=== PATIENT | male | born 1960 | race Caucasian/White ===

== ENCOUNTER 2024-06-06 14:57 | Inpatient (IN) | payer OTHER ==
[~2024-06-06] VITALS: Ht 188 cm; Wt 96.6 kg
[2024-06-06 15:51] LABS: BASOPHILS % (AUTO) 0.1 % (0.0-2.0); EOSINOPHILS # (AUTO) 0.1 K/uL (0.0-0.7); EOSINOPHILS % (AUTO) 1.7 % (0.0-6.0); HEMATOCRIT 34 % (39-51); HEMOGLOBIN 12.3 g/dL (13.5-17.5); LYMPHOCYTES # (AUTO) 0.3 K/uL (0.8-4.8); MEAN CORPUSCULAR HEMOGLOBIN 33 PG (26.0-33.0); MEAN CORPUSCULAR HGB CONC 36 g/dl (31.0-36.0); MEAN CORPUSCULAR VOLUME 92 fL (80-96); MONOCYTES # (AUTO) 0.6 K/uL (0.1-1.30); MONOCYTES % (AUTO) 16.6 % (2.0-12.0); NEUTROPHILS # (AUTO) 2.7 K/uL (1.8-8.9); NEUTROPHILS % (AUTO) 73.6 % (43.0-81.0); PLATELET COUNT (AUTO) 87 K/uL (150-450); RED BLOOD CELL COUNT(AUTO) 3.73 MIL/uL (4.5-6.0); RED CELL DISTRIBUTION WIDTH 18.1 % (11.5-15.0); WHITE BLOOD COUNT (AUTO) 3.6 K/uL (4.3-11.0)
[2024-06-06 15:54] LABS: CALCIUM, SERUM 8.4 mg/dL (8.5-10.1); CARBON DIOXIDE 32 mmol/L (21-32); CHLORIDE 97 mmol/L (98-107); CREATININE 1.4 mg/dL (0.6-1.3); GLUCOSE 162 mg/dL (74-106); POTASSIUM 4.1 mmol/L (3.5-5.1); SODIUM SERUM 136 mmol/L (136-145); UREA NITROGEN, BLOOD 28 mg/dL (7-18)
[2024-06-06 16:04] LABS: INR 1.32 (0.91-1.10); PARTIAL THROMBOPLASTIN TIME 28.6 SEC (24.3-34.3); PROTHROMBIN TIME 13.7 SECS (9.2-11.1)
[2024-06-06 16:06] LABS: LACTIC ACID 2.1 mmol/L (0.4-2.0)
[2024-06-06 16:11] LABS: ALANINE AMINOTRANSFERASE 18 U/L (12-78); ALBUMIN 2.9 g/dL (3.4-5.0); ALKALINE PHOSPHATASE 129 U/L (46-116); ASPARTATE AMINOTRANSFERASE 38 U/L (15-37); BILIRUBIN,DIRECT 0.6 mg/dL (0.0-0.2); BILIRUBIN,TOTAL 2.3 mg/dL (0.2-1.0); TOTAL PROTEIN, SERUM 6.4 g/dL (6.4-8.2)
[2024-06-06] MEDS: IV NS 0.9% 1,000 ML BAG IV ONE (16:14)
[2024-06-06] MEDS: CEFEPIME 1 GM in IV D5W 50 ML IV ONE (16:14)
[2024-06-06] MEDS: VANCOMYCIN 1 GM in IV D5W 250 ML IV ONE (16:16)
[2024-06-06 18:31] LABS: APPEARANCE,URINE CLEAR (CLEAR); BILIRUBIN,URINE NEGATIVE (NEGATIVE); BLOOD, URINE NEGATIVE Ery/uL (NEGATIVE); COLOR,URINE YELLOW (YELLOW); KETONES,URINE NEGATIVE (NEGATIVE); LEUKOCYTE ESTERASE ,URINE NEGATIVE (NEGATIVE); NITRITE, URINE NEGATIVE (NEGATIVE); PROTEIN,URINE NEGATIVE (NEGATIVE); UGLUCOSE NEGATIVE (NEGATIVE); UROBILINOGEN,URINE 0.2 EU/dL (0.2)
[2024-06-06 18:40] LABS: EOSINOPHILS % (MANUAL) 2 % (0-4); LYMPHOCYTES % (MANUAL) 11 % (16-48); MONOCYTES % (MANUAL) 8 % (0-11.0); NEUTROPHILS % (MANUAL) 77 (42-76); PLATELET ESTIMATE DECREASED; REACTIVE LYMPHOCYTES 2 % (0-0)
[2024-06-06 18:42] LABS: ANISOCYTOSIS 1+
[2024-06-06] MEDS ORDERED: ACETAMINOPHEN 325 MG TABLET PO PRN (19:30)
[2024-06-06] MEDS ORDERED: Z GUARD REMEDY 4 OZ OINT TP PRN (19:30)
[2024-06-06] MEDS ORDERED: ONDANSETRON HCL/PF 4 MG/2 ML VIAL IVP PRN (19:30)
[2024-06-06] MEDS ORDERED: MAGNESIUM HYDROXIDE 30 ML UDC PO PRN (19:30)
[2024-06-06] MEDS ORDERED: MAG HYDROX/AL HYDROX/SIMETH 30 ML UDC PO PRN (19:30)
[2024-06-06] MEDS ORDERED: ZINC50TA65 PO (19:39)
[2024-06-06] MEDS ORDERED: FAMO20TA8 PO (19:39)
[2024-06-06] MEDS ORDERED: HYDR-3980 PO (19:39)
[2024-06-06] MEDS ORDERED: LINA5TAB PO (19:39)
[2024-06-06] MEDS ORDERED: ACET325T53 PO (19:39)
[2024-06-06] MEDS ORDERED: SENN-261 PO (19:39)
[2024-06-06] MEDS ORDERED: ATOR40TA PO (19:39)
[2024-06-06] MEDS ORDERED: MIRT-90 PO (19:39)
[2024-06-06] MEDS ORDERED: METO25TA4 PO (19:39)
[2024-06-06] MEDS ORDERED: MEGE40TA7 PO (19:39)
[2024-06-06] MEDS ORDERED: ACET-637 PO (19:39)
[2024-06-06] MEDS ORDERED: INSU100I34 SQ (19:39)
[2024-06-06] MEDS ORDERED: AMLO-212 PO (19:39)
[2024-06-06] MEDS ORDERED: ASPI-1420 PO (19:39)
[2024-06-06] MEDS ORDERED: SULF1TAB47 PO (19:39)
[2024-06-06] MEDS ORDERED: BISA10SU11 RC (19:39)
[2024-06-06] MEDS ORDERED: INSU100I30 SQ (19:39)
[2024-06-06] MEDS ORDERED: FOLI0.8T2 PO (19:39)
[2024-06-06] MEDS ORDERED: GABA300C PO (19:39)
[2024-06-06] MEDS ORDERED: ASCO500T22 PO (19:39)
[2024-06-06] MEDS ORDERED: CLOP75TA15 PO (19:39)
[2024-06-06] MEDS ORDERED: DOCU100C36 PO (19:39)
[2024-06-06] MEDS ORDERED: MAGN400O6 PO (19:39)
[2024-06-06] MEDS ORDERED: FURO20TA4 PO (19:39)
[2024-06-06] MEDS ORDERED: HEPA50007 SQ (19:39)
[2024-06-06] MEDS ORDERED: NA P133E RC (19:39)
[2024-06-06] MEDS ORDERED: POLY17PO4 PO (19:39)
[2024-06-06] MEDS ORDERED: AMIN30LI66 PO (19:39)
[2024-06-06] MEDS: IV NS 0.9% 1,000 ML IV PRN (22:22)
[2024-06-06] MEDS: MORPHINE SULFATE INJ 2 MG/ML DISP.SYRIN IV PRN (22:36)
[2024-06-06] MEDS: ENOXAPARIN SODIUM 40 MG/0.4 ML DISP.SYRIN SQ SCH (23:01)
[2024-06-06] MEDS: LACTULOSE 10 G/15 ML UDC (PYXIS) PO SCH (23:48)
[2024-06-07] VITALS (7 sets, daily range): BP systolic 97–123; BP diastolic 60–87; TEMP 97.5–98.1; O2SAT 94–98
[2024-06-07 07:34] LABS: BASOPHILS % (AUTO) 0.5 % (0.0-2.0); EOSINOPHILS # (AUTO) 0.1 K/uL (0.0-0.7); EOSINOPHILS % (AUTO) 1.9 % (0.0-6.0); HEMATOCRIT 36 % (39-51); HEMOGLOBIN 12.4 g/dL (13.5-17.5); LYMPHOCYTES # (AUTO) 0.3 K/uL (0.8-4.8); LYMPHOCYTES % (AUTO) 8.4 % (20.0-44.0); MEAN CORPUSCULAR HEMOGLOBIN 32 PG (26.0-33.0); MEAN CORPUSCULAR HGB CONC 34 g/dl (31.0-36.0); MEAN CORPUSCULAR VOLUME 93 fL (80-96); MONOCYTES # (AUTO) 0.4 K/uL (0.1-1.30); MONOCYTES % (AUTO) 14.4 % (2.0-12.0); NEUTROPHILS # (AUTO) 2.3 K/uL (1.8-8.9); NEUTROPHILS % (AUTO) 74.8 % (43.0-81.0); PLATELET COUNT (AUTO) 78 K/uL (150-450); RED CELL DISTRIBUTION WIDTH 18.2 % (11.5-15.0); WHITE BLOOD COUNT (AUTO) 3.1 K/uL (4.3-11.0)
[2024-06-07 07:48] LABS: CALCIUM, SERUM 8.3 mg/dL (8.5-10.1); CREATININE 1.1 mg/dL (0.6-1.3); MAGNESIUM 1.9 mg/dL (1.8-2.4); POTASSIUM 3.6 mmol/L (3.5-5.1)
[2024-06-07] MEDS: PANTOPRAZOLE 40 MG TABLET.DR PO SCH (08:10)
[2024-06-07] MEDS: HYDROCODONE/APAP 5/325MG TABLET PO PRN (08:17)
[2024-06-07 19:32] LABS: PROTEIN, BODY FLUID 1.4 G/DL
[2024-06-07 21:21] LABS: APPEARANCE,SPUN,BODY FLUID CLEAR (CLEAR); TOTAL VOLUME,BODY FLUID 4000 mL
[2024-06-07 21:26] LABS: WBC, BODY FLUID 209 /cu. mm. (0-200)
[2024-06-07 23:07] LABS: ANISOCYTOSIS 1+; EOSINOPHILS % (MANUAL) 2 % (0-4); LYMPHOCYTES % (MANUAL) 16 % (16-48); MONOCYTES % (MANUAL) 10 % (0-11.0); NEUTROPHILS % (MANUAL) 72 (42-76); PLATELET ESTIMATE DECREASED
[2024-06-08 00:43] VITALS: BP 110/79; TEMP 98.1; O2SAT 97
[2024-06-08 03:56] LABS: MONOCYTES,BODY FLUID 70 %; POLYNUCLEAR, BODY FLUID 3 % (0-25)
[2024-06-08 04:20] VITALS: BP 118/78; TEMP 98.1; O2SAT 99
[2024-06-08 05:21] VITALS: BP 118/78; TEMP 98.1; O2SAT 99
[2024-06-08 06:53] LABS: BASOPHILS % (AUTO) 0.4 % (0.0-2.0); EOSINOPHILS # (AUTO) 0.1 K/uL (0.0-0.7); EOSINOPHILS % (AUTO) 2.5 % (0.0-6.0); HEMATOCRIT 37 % (39-51); HEMOGLOBIN 12.5 g/dL (13.5-17.5); LYMPHOCYTES # (AUTO) 0.2 K/uL (0.8-4.8); LYMPHOCYTES % (AUTO) 7.9 % (20.0-44.0); MEAN CORPUSCULAR HEMOGLOBIN 31 PG (26.0-33.0); MEAN CORPUSCULAR HGB CONC 34 g/dl (31.0-36.0); MEAN CORPUSCULAR VOLUME 93 fL (80-96); MONOCYTES # (AUTO) 0.5 K/uL (0.1-1.30); MONOCYTES % (AUTO) 16.8 % (2.0-12.0); NEUTROPHILS # (AUTO) 2.2 K/uL (1.8-8.9); NEUTROPHILS % (AUTO) 72.4 % (43.0-81.0); PLATELET COUNT (AUTO) 72 K/uL (150-450); RED BLOOD CELL COUNT(AUTO) 3.97 MIL/uL (4.5-6.0); RED CELL DISTRIBUTION WIDTH 18.2 % (11.5-15.0)
[2024-06-08 07:08] LABS: ALBUMIN 2.9 g/dL (3.4-5.0); BILIRUBIN,TOTAL 3.3 mg/dL (0.2-1.0); CALCIUM, SERUM 8.6 mg/dL (8.5-10.1); PHOSPHORUS 3.3 mg/dL (2.5-4.9); POTASSIUM 3.4 mmol/L (3.5-5.1); TOTAL PROTEIN, SERUM 6.4 g/dL (6.4-8.2)
[2024-06-08 07:18] LABS: CREATININE, URINE 161.7 MG/DL (30.0-125.0); URINE SODIUM, RANDOM < 5 mmol/l (40-220); URINE TOTAL PROTEIN 3.2 mg/dL (0-11.9)
[2024-06-08 08:00] VITALS: BP 116/82; O2SAT 96
[2024-06-08] MEDS: POTASSIUM CHLORIDE 20 MEQ TAB.PRT.SR PO SCH (10:13)
[2024-06-08 14:27] LABS: EOSINOPHILS % (MANUAL) 3 % (0-4); LYMPHOCYTES % (MANUAL) 10 % (16-48); MONOCYTES % (MANUAL) 10 % (0-11.0); NEUTROPHILS % (MANUAL) 77 (42-76); PLATELET ESTIMATE DECREASED
[2024-06-09 06:10] LABS: PTH, INTACT 20 pg/mL (15-65)
== END 2024-06-08 18:37 | disposition home or self-care (01) ==
LOC: ER 15:00 → TELE1 20:31
PROC: 0W9G3ZX Drainage of Peritoneal Cavity, Percutaneous Approach, Diagnostic (ICD-10-PCS; principal; 2024-06-07)
DX: K76.82 Hepatic encephalopathy (principal); D61.818 Other pancytopenia; Z76.82 Awaiting organ transplant status; N17.9 Acute kidney failure, unspecified; E87.20 Acidosis, unspecified; K76.7 Hepatorenal syndrome; G40.909 Epilepsy, unspecified, not intractable, without status epilepticus; R53.1 Weakness; E87.1 Hypo-osmolality and hyponatremia; E87.6 Hypokalemia; Z95.0 Presence of cardiac pacemaker; K74.60 Unspecified cirrhosis of liver; K76.6 Portal hypertension; D64.9 Anemia, unspecified; R16.1 Splenomegaly, not elsewhere classified
CPT/HCPCS: 36415; 49083; 70450-TC; 71045-TC; 80048-TC; 80053-TC; 80076-TC; 82140-TC; 82550-TC; 82570-TC; 82962-TC; 83605-TC; 83735-TC; 83970; 84100-TC; 84155; 84165; 84300-TC; 85025-TC; 85730-TC; 87040-TC; 87081-TC; 87086-TC; 87102-TC; 89051-TC; 97110-TC; 97116-TC; 97530-TC; A4223; G0378; J0692; J1650; J2270; J3370; J7030; J7040; J7060